=== PATIENT | female | born 1995 | race Caucasian/White ===

== ENCOUNTER 2016-09-04 20:30 | Emergency (ER) | payer OTHER ==
[2016-09-04 20:36] VITALS: BP 127/89; PULSE 75; RESP 15; TEMP 98.8; O2SAT 98
--- NOTE | 2016-09-04 20:52 | PD ---
Physical Exam Time Seen by Provider: 20:50 Narrative 21 y/o female with sneezing/coughing as well as a sharp pain near the umbilicus. The coughing started one week ago and the abdominal pain started today. Vital signs reviewed. Seen at triage desk. Awaiting bed placement. Data Data Last Documented VS Vital Signs Date Time Temp Pulse Resp B/P Pulse Ox O2 Delivery O2 Flow Rate FiO2 09/04/16 20:36 98.8 75 15 127/89 98 Room Air [facility] Medical Record Reviewed: Yes Supervised Visit with SETH: Malik Farley Sep 04, 2016 20:51
== END 2016-09-05 00:30 | disposition left against medical advice (07) ==
LOC: NED 20:30
DX: R10.9 Unspecified abdominal pain (principal)
CPT/HCPCS: 99281